=== PATIENT | female | born 1945 | race Caucasian/White ===

== ENCOUNTER → 2017-12-29 | Outpatient (CLI) | payer OTHER, MEDICARE | LOC: M.ULTRA 11-29 13:57 | DX: Z12.31 Encounter for screening mammogram for malignant neoplasm of breast (principal); N85.2 Hypertrophy of uterus; D25.9 Leiomyoma of uterus, unspecified; M81.0 Age-related osteoporosis without current pathological fracture; E28.8 Other ovarian dysfunction; M47.896 Other spondylosis, lumbar region; M41.86 Other forms of scoliosis, lumbar region; G95.89 Other specified diseases of spinal cord; Z78.0 Asymptomatic menopausal state ==

== ENCOUNTER → 2018-06-06 | Outpatient (CLI) | payer OTHER, MEDICARE | LOC: M.RAD 11:58 | DX: M54.6 Pain in thoracic spine (principal); R05 Cough ==